=== PATIENT | male | born 1970 | race Caucasian/White ===

== ENCOUNTER 2018-10-18 17:13 | Emergency (ER) | payer MEDICARE, MEDICAID ==
[~2018-10-18] VITALS: Ht 188 cm; Wt 124.0 kg
[2018-10-18 20:00] VITALS: BP 108/71
== END 2018-10-18 22:46 ==
LOC: ED 19:52
DX: F33.2 Major depressive disorder, recurrent severe without psychotic features (principal); R45.851 Suicidal ideations
CPT/HCPCS: 36415; 80048; 80164; 80307; 82040; 85025; 99285